=== PATIENT | female | born 1970 | race American Indian/Alaskan Native ===

== ENCOUNTER 2019-11-17 16:03 | Emergency (ER) | payer SELFPAY ==
[2019-11-17 17:25] VITALS: BP 137/96
[2019-11-17] MEDS ORDERED: IBUPROFEN 600 MG TAB PO ONE ×2 (17:27→17:31)
--- NOTE | 2019-11-17 17:29 | Event Note ---
ED Screening Note ED Screening Note: pt is a 49 yo female who presents URI symptoms that began yesterday +dry cough headache body aches fever nausea and one episode of vomiting + flu contact at work took aleve around 6 AM this morning PMHx none no allergies to meds +smoker Initial orders include: ibuprofen 600 mg
--- NOTE | 2019-11-17 17:30 | Emergency Department Report ---
- General Chief Complaint: Upper Respiratory Infection Stated Complaint: FLU SYM Time Seen by Provider: 11/17/19 17:24 Source: patient Mode of arrival: Ambulatory Limitations: No Limitations - History of Present Illness Initial Comments: pt is a 49 yo female who presents URI symptoms that began yesterday. she has associated dry cough, headache, body aches, fever, nausea and one episode of vomiting. she denies any diarrhea, abd pain, CP, SOB.she has had a flu contact at work. she states she took aleve around 6 AM this morning. PMHx none no allergies to meds. +smoker - Related Data Previous Rx's Medication Instructions Recorded Last Taken Type Oseltamivir [Tamiflu] 75 mg PO BID 5 Days #10 cap 11/17/19 Unknown Rx Allergies Allergy/AdvReac Type Severity Reaction Status Date / Time No Known Allergies Allergy Verified 11/17/19 16:09 ED Review of Systems ROS: Stated complaint: FLU SYM Other details as noted in HPI Comment: All other systems reviewed and negative ED Past Medical Hx - Past Medical History Previous Medical History?: No - Surgical History Past Surgical History?: Yes Additional Surgical History: partial bowel obstruction, hysterectomy - Social History Smoking Status: Current Every Day Smoker Substance Use Type: None - Medications Home Medications: Home Medications Medication Instructions Recorded Confirmed Last Taken Type Oseltamivir [Tamiflu] 75 mg PO BID 5 Days #10 cap 11/17/19 Unknown Rx ED Physical Exam - General Limitations: No Limitations General appearance: alert, in no apparent distress - Head Head exam: Present: atraumatic, normocephalic - Eye Eye exam: Present: normal appearance - ENT ENT exam: Present: normal orophraynx, mucous membranes moist, TM's normal bilaterally, normal external ear exam - Respiratory Respiratory exam: Present: normal lung sounds bilaterally. Absent: respiratory distress, wheezes, rales, rhonchi, stridor, chest wall tenderness, accessory muscle use, decreased breath sounds, prolonged expiratory - Cardiovascular Cardiovascular Exam: Present: normal rhythm, tachycardia, normal heart sounds. Absent: systolic murmur, diastolic murmur, rubs, gallop - Neurological Exam Neurological exam: Present: alert, oriented X3 - Psychiatric Psychiatric exam: Present: normal affect, normal mood - Skin Skin exam: Present: warm, dry, intact ED Course Vital Signs 11/17/19 11/17/19 11/17/19 17:23 17:25 18:19 Temperature 100.4 F H 102.7 F H 100.4 F H Pulse Rate 117 H 111 H 94 H Respiratory 18 Rate Blood Pressure 137/96 O2 Sat by Pulse 98 98 98 Oximetry ED Medical Decision Making - Medical Decision Making pt is a 49 yo female who presents URI symptoms that began yesterday. she has associated dry cough, headache, body aches, fever, nausea and one episode of vomiting. she denies any diarrhea, abd pain, CP, SOB.she has had a flu contact at work. she states she took aleve around 6 AM this morning. PMHx none no allergies to meds. +smoker. Initial vitals with elevated heart rate and temperature which improved upon ibuprofen administration. Patient has clinical signs and symptoms of influenza and has had a sick contact with flu. Patient will be given a prescription for Tamiflu as she is within the 48-hour range. advised pt please take medication as prescribed. please increase your fluid intake over the next several days. may alternate tylenol or ibuprofen every 4 hours as needed for a fever or body aches. may take over the counter cough medication. follow up with a primary care doctor in the next 2-3 days. return to the emergency room for any new or worsening symptoms. - Differential Diagnosis URI, PNA, influenza, bronchitis, viral syndrome Critical care attestation.: If time is entered above; I have spent that time in minutes in the direct care of this critically ill patient, excluding procedure time. ED Disposition Clinical Impression: Influenza Disposition: DC-01 TO HOME OR SELFCARE Is pt being admited?: No Does the pt Need Aspirin: No Condition: Stable Instructions: Influenza (ED) Additional Instructions: please take medication as prescribed. please increase your fluid intake over the next several days. may alternate tylenol or ibuprofen every 4 hours as needed for a fever or body aches. may take over the counter cough medication. follow up with a primary care doctor in the next 2-3 days. return to the emergency room for any new or worsening symptoms. Prescriptions: Oseltamivir [Tamiflu] 75 mg PO BID 5 Days #10 cap Referrals: ZACK DERAS MD [Staff Physician] - 2-3 Days [facility] [Outside] - 2-3 Days Forms: Work/School Release Form(ED) Time of Disposition: 18:19 Print Language: TURKMEN
== END 2019-11-18 02:35 | disposition home or self-care (01) ==
LOC: ED 16:03
DX: J11.1 Influenza due to unidentified influenza virus with other respiratory manifestations (principal); F17.200 Nicotine dependence, unspecified, uncomplicated; Z90.710 Acquired absence of both cervix and uterus
CPT/HCPCS: 99282

== ENCOUNTER 2020-03-27 10:43 | Emergency (ER) | payer SELFPAY ==
[2020-03-27 10:48] VITALS: BP 149/99
[2020-03-27] MEDS ORDERED: KETOROLAC 60 MG/2 ML INJ IM ONE (11:09)
[2020-03-27] MEDS ORDERED: PENICILLIN G BENZATHINE 1.2 MILLION UNIT/2 ML INJ IM ONE (11:09)
--- NOTE | 2020-03-27 11:09 | Emergency Department Report ---
ED ENT HPI - General Chief complaint: Dental/Oral Stated complaint: LFT SIDE TOOTHACHE/PAIN Time Seen by Provider: 03/27/20 11:07 Source: patient Mode of arrival: Ambulatory Limitations: No Limitations - History of Present Illness Initial comments: 49 yo comes to ER with swelling left mandibular areas and dental pain. abc intact controlling secretions no trismus called dmd and they had no appnt. ER eval due to concerns for abscess/lg HENRY complaint: tooth pain -: Gradual, days(s) Severity: moderate Severity scale (0 -10): 8 Quality: aching Consistency: constant Improves with: none Worsens with: none Associated Symptoms: gum swelling, toothache. denies: pain with swallowing, sore throat, tinnitus, hearing loss, discharge from ear, rhinorrhea - Related Data Previous Rx's Medication Instructions Recorded Last Taken Type Amoxicillin [Trimox CAP] 500 mg PO Q8H #30 capsule 03/27/20 Unknown Rx Ibuprofen [Motrin] 800 mg PO Q8HR PRN #30 tablet 03/27/20 Unknown Rx Allergies Allergy/AdvReac Type Severity Reaction Status Date / Time No Known Allergies Allergy Verified 11/17/19 16:09 ED Dental HPI - General Chief complaint: Dental/Oral Stated complaint: LFT SIDE TOOTHACHE/PAIN Time Seen by Provider: 03/27/20 11:07 Source: patient Mode of arrival: Ambulatory Limitations: No Limitations - Related Data Previous Rx's Medication Instructions Recorded Last Taken Type Amoxicillin [Trimox CAP] 500 mg PO Q8H #30 capsule 03/27/20 Unknown Rx Ibuprofen [Motrin] 800 mg PO Q8HR PRN #30 tablet 03/27/20 Unknown Rx Allergies Allergy/AdvReac Type Severity Reaction Status Date / Time No Known Allergies Allergy Verified 11/17/19 16:09 ED Review of Systems ROS: Stated complaint: LFT SIDE TOOTHACHE/PAIN Other details as noted in HPI Comment: All other systems reviewed and negative ED Past Medical Hx - Past Medical History Previous Medical History?: No - Surgical History Past Surgical History?: Yes Additional Surgical History: partial bowel obstruction, hysterectomy - Family History Family history: no significant - Social History Smoking Status: Current Every Day Smoker Substance Use Type: None - Medications Home Medications: Home Medications Medication Instructions Recorded Confirmed Last Taken Type Amoxicillin [Trimox CAP] 500 mg PO Q8H #30 capsule 05/05/20 Unknown Rx Ibuprofen [Motrin] 800 mg PO Q8HR PRN #30 tablet 03/27/20 Unknown Rx ED Physical Exam - General Limitations: No Limitations General appearance: alert, in no apparent distress - Head Head exam: Present: atraumatic, normocephalic - Eye Eye exam: Present: normal appearance - ENT ENT exam: Present: mucous membranes moist - Expanded ENT Exam Expanded Mouth exam: Absent: drooling, trismus, muffled voice, tongue normal, tongue elevation, laceration Teeth exam: Present: dental caries, dental tenderness #, gingival enlargement 1 - Other (CARIES; ABSCESS; GINGIVITIS) - Neck Neck exam: Present: normal inspection - Respiratory Respiratory exam: Present: normal lung sounds bilaterally. Absent: respiratory distress - Cardiovascular Cardiovascular Exam: Present: regular rate, normal rhythm. Absent: systolic murmur, diastolic murmur, rubs, gallop - GI/Abdominal GI/Abdominal exam: Present: soft, normal bowel sounds - Extremities Exam Extremities exam: Present: normal inspection - Back Exam Back exam: Present: normal inspection - Neurological Exam Neurological exam: Present: alert, oriented X3 - Psychiatric Psychiatric exam: Present: normal affect, normal mood - Skin Skin exam: Present: warm, dry, intact, normal color. Absent: rash ED Course Vital Signs 03/27/20 10:46 Temperature 98.9 F Pulse Rate 101 H Respiratory 20 Rate Blood Pressure 149/99 O2 Sat by Pulse 99 Oximetry ED Medical Decision Making - Medical Decision Making no ludwigs no post pharyn/retropharyn abscess taking po abc intact no trismus medicated IM in ER dc home with dmd follow up Vital Signs 03/27/20 10:46 Temperature 98.9 F Pulse Rate 101 H Respiratory 20 Rate Blood Pressure 149/99 O2 Sat by Pulse 99 Oximetry - Differential Diagnosis ro abscess Critical care attestation.: If time is entered above; I have spent that time in minutes in the direct care of this critically ill patient, excluding procedure time. ED Disposition Clinical Impression: Dental abscess, Dental caries Disposition: DC- TO HOME OR SELFCARE Is pt being admited?: No Does the pt Need Aspirin: No Condition: Stable Instructions: Dental Abscess (ED), Dental Caries (ED), Toothache (ED) Additional Instructions: MEDS ORDERED SEE DMD MIGUELANGEL REFERRALS ATTACHED Prescriptions: Ibuprofen [Motrin] 800 mg PO Q8HR PRN #30 tablet PRN Reason: Pain, Moderate (4-6) Amoxicillin [Trimox CAP] 500 mg PO Q8H #30 capsule Referrals: [facility] [Outside] - 3-5 Days [facility] [Outside] - 3-5 Days Time of Disposition: 11:11
== END 2020-03-27 12:41 | disposition home or self-care (01) ==
LOC: ED 10:43
DX: K04.7 Periapical abscess without sinus (principal); K02.9 Dental caries, unspecified; F17.200 Nicotine dependence, unspecified, uncomplicated; Z98.890 Other specified postprocedural states; Z90.710 Acquired absence of both cervix and uterus; Z79.1 Long term (current) use of non-steroidal anti-inflammatories (NSAID); Z79.2 Long term (current) use of antibiotics
CPT/HCPCS: 96372; 99282; J0561; J1885